=== PATIENT | female | born 1980 | race Asian ===

== ENCOUNTER → 2017-10-09 | Day surgery (SDC) | payer SELFPAY ==
[~2017-10-09] VITALS: Ht 152.4 cm; Wt 52.2 kg
--- NOTE | 2017-10-09 12:34 | Operative Report ---
Operative/Inv Procedure Report Surgery Date: 10/09/17 Name of Procedure: Exchange right-sided implant with capsule lipectomy Pre-Operative Diagnosis: Ruptured right breast saline implant Post-Operative Diagnosis: Same Estimated Blood Loss: scant Surgeon/[employer] Wheel Fabricator: Kishan LAI,Wade Muñiz Anesthesia: laryngeal mask airway Operative/Procedure Note Note: Patient was counseled in regards to the procedure the alternatives the risks and expected outcomes as relates to request for surgical intervention to treat a ruptured right sided saline implant. The patient states as of Friday she noticed loss of volume on the right. She states were no prior changes. We discussed replacing the implant for the previous one. 4 consent was signed. She was taken to the operating placed supine on the table. Venodyne boots are placed general anesthesia was established intravenous antibiotics were given. The chest was prepped and draped in usual sterile fashion. The inframammary incision scar was opened. The pocket was identified and opened and completely deflated grossly intact saline implant with the valve closed was removed. The pocket was very tight and there was evidence of contracture. So was released in a few locations with the use of electrocautery. The pocket was irrigated. 275 mL of saline was placed in the implant with good symmetry. Sutures were placed prior to closure. Of note there was pocket irrigation implant irrigation with triple and valgus Betadine straight Betadine applied to the skin, Isabelle funnel use, nipple covers, multiple glove changes by the operating surgeon. Steri- Strips were placed after 3 layer closure.
== END ==
LOC: STS 01:50
DX: Z41.1 Encounter for cosmetic surgery (principal); T85.43XA Leakage of breast prosthesis and implant, initial encounter
CPT/HCPCS: 81025; J0131; J0690; J1580; J2250; J3490